=== PATIENT | male | born 1990 | race Caucasian/White ===

== ENCOUNTER 2021-12-29 16:46 | Emergency (ER) | payer SELFPAY ==
[~2021-12-29] VITALS: Ht 170.2 cm; Wt 83.9 kg
[2021-12-29] MEDS ORDERED: TDAP [DIPH/PERTUSSIS/TET] 0.5 ML VIAL IM ONE ×2 (17:30→17:45)
--- NOTE | 2021-12-29 18:43 | NUR ---
[facility] in ED - 12/29/21 at 1844 by VIVIANA Patient discharged to home in stable condition. Written and verbal after care instructions given. Patient verbalizes understanding of instruction.
--- NOTE | 2021-12-29 18:44 | NUR ---
Patient discharged to [id number] in stable condition. Written and verbal after care instructions given. Patient verbalizes understanding of instruction.
[2021-12-29 18:45] VITALS: BP 124/81
== END 2021-12-29 18:45 | disposition home or self-care (01) ==
LOC: ER 16:51
DX: S61.211A Laceration without foreign body of left index finger without damage to nail, initial encounter (principal); S89.91XA Unspecified injury of right lower leg, initial encounter; Y04.0XXA Assault by unarmed brawl or fight, initial encounter; Y93.89 Activity, other specified; Y92.89 Other specified places as the place of occurrence of the external cause; Y99.8 Other external cause status
CPT/HCPCS: 73564-TC; 90715